=== PATIENT | male | born 1975 | race Caucasian/White ===

== ENCOUNTER → 2019-11-17 | Outpatient (CLI) | payer SELFPAY ==
--- NOTE | 2019-11-17 08:40 | Diagnostic Imaging Report ---
PROCEDURE: US Gallbladder. TECHNIQUE: Multiple real-time grayscale images were obtained over the right upper quadrant in various projections. INDICATION: Right upper quadrant pain for 2 weeks. Liver measures 16.2 cm in size. No discrete liver mass is identified. Portal vein is patent and shows normal direction of flow. Gallbladder is without stones or sludge. No wall thickening is identified. Extrahepatic bile duct is somewhat prominent at 10 mm. No definite common duct stone is detected. The pancreas is obscured by bowel gas. Aorta is is obscured. IVC is patent. Right kidney is without calculi or hydronephrosis. No ascites. IMPRESSION: 1. No evidence of cholelithiasis or acute cholecystitis. 2. Extrahepatic bile duct is prominent at 10 mm. No common duct stone is detected sonographically. Dictated by: Dictated on workstation # [id number]
== END ==
LOC: RAD 07:24
PROVIDERS: ATTEND Student in an Organized Health Care Education/Training Program
DX: R10.11 Right upper quadrant pain (principal)
CPT/HCPCS: 76705

== ENCOUNTER → 2019-12-04 | Outpatient (CLI) | payer OTHER ==
[~2019-12-04] MED LIST: CATHETER FLUSH 10 ML SYR IV PRN
--- NOTE | 2019-12-04 10:23 | Diagnostic Imaging Report ---
Hepatobiliary scan with ejection fraction. Indication: Abdominal pain This study was performed following administration of 5.06 mCi of Choletec and 8 ounces of Ensure. There are no prior nuclear medicine studies available for comparison. The gallbladder ultrasound exam performed on 11/17/2019 failed to show any sign of cholelithiasis or acute cholecystitis. The extrahepatic common bile duct was prominent at 10 mm. There is no evidence for choledocholithiasis however. On this exam, there is uptake of the radiotracer by the gallbladder for 30 minutes. This would be against a diagnosis of acute cholecystitis. There is also extension of the radiotracer into the small bowel indicating the common bile duct is not obstructed. The ejection fraction is 51.1% (normal greater than 35%). Impression: 1. There is no evidence for acute cholecystitis or for obstruction of the common bile duct. 2. The ejection fraction is 51.1% and within normal limits. Dictated by: Dictated on workstation # [id number]
== END ==
LOC: CARD 07:28
PROVIDERS: ATTEND Nurse Practitioner Family
DX: R10.11 Right upper quadrant pain (principal); R11.0 Nausea
CPT/HCPCS: 78227; A9537

== ENCOUNTER 2020-02-11 16:22 | Emergency (ER) | payer SELFPAY ==
[~2020-02-11] VITALS: Ht 182.8 cm; Wt 90.0 kg
--- NOTE | 2020-02-11 17:20 | ED Abdominal Pain ---
General Chief Complaint: Abdominal/GI Problems Stated Complaint: STOMACH PAIN/CHILLS/HOT FLASHES Nursing Triage Note: AMB TO ED WITH C/O EPIGASTRIC PAIN FOR 2 MONTHS HAS SEEN HIS DR FOR. 1 MONTH AGO HAD A HIDA SCAN AND GALLBLADDER SONO DID NOT SHOW ANYTHING. ABLE TO EAT AND DRINK. FOR 1 MONTH THAN CAME BACK YESTERDAY. WITH NAUSEA AND EPIGASTRIC PAIN Sepsis Screen: No Definite Risk Source of Information: Patient Exam Limitations: No Limitations History of Present Illness Date Seen by Provider: Feb 11, 2020 Time Seen by Provider: 17:20 Initial Comments This is a well appearing 45 yo male who presents with epigastric pain and nausea x2 days. States he has a history of gastritis and takes omeprazole twice a day. Todays pain feels the same as his prior episode of gastritis. Reports he has been lax in his diet and ate canned beef pasta and crespo tomato sandwich prior to symptom onset. States he was unable to eat or drink anything yesterday due to nausea. Denies tobacco, alcohol or drug use, stating he quit smoking, drugs and alcohol one year ago. Denies fever, chills, chest pain, cough, shortness of breath, or difficulty urinating. Denies COVID exposure or exposure to ill contacts. Allergies and Home Medications Allergies Uncoded Allergies: SEAFOOD (Allergy, Unknown, 02/11/20) Home Medications Promethazine HCl 25 Mg Tablet, 25 MG PO Q6H PRN for NAUSEA/VOMITING Prescribed by: ANA AHMADI on 02/11/201942 Sucralfate 1 Gm Tablet, 1 GM PO TIDAC Prescribed by: ANA AHMADI on 02/11/201942 Patient Home Medication List Home Medication List Reviewed: Yes Review of Systems Review of Systems Constitutional: no symptoms reported EENTM: No Symptoms Reported Respiratory: No Symptoms Reported Cardiovascular: No Symptoms Reported Gastrointestinal: See HPI Genitourinary: No Symptoms Reported Musculoskeletal: no symptoms reported Skin: no symptoms reported Psychiatric/Neurological: No Symptoms Reported Endocrine: No Symptoms Reported Hematologic/Lymphatic: No Symptoms Reported Past [id number] Hx Patient Social History Alcohol Use: Denies Use Recreational Drug Use: No Smoking Status: Current Everyday Smoker Recent Foreign Travel: No Contact w/Someone Who Travel: No Recent Infectious Disease Expo: No Past Medical History Surgeries: Yes Orthopedic, Tonsillectomy Respiratory: No Cardiac: Yes Hypertension Neurological: No Genitourinary: No Gastrointestinal: No Musculoskeletal: No Endocrine: No HEENT: No Cancer: No Psychosocial: No Integumentary: No Physical Exam Vital Signs Vital Signs - First Documented 02/11/20 16:51 Temp 36.3 Pulse 76 Resp 18 B/P (MAP) 177/107 (130) Pulse Ox 99 O2 Delivery Room Air Capillary Refill : Less Than 3 Seconds Height/Weight/BMI Height: '" Weight: lbs. oz. kg; 26.00 BMI Method: General Appearance: WD/WN, no apparent distress HEENT: PERRL/EOMI, normal ENT inspection, pharynx normal Neck: full range of motion, supple, normal inspection Respiratory: lungs clear, normal breath sounds, no respiratory distress Cardiovascular: normal peripheral pulses, regular rate, rhythm, no edema, no murmur Gastrointestinal: normal bowel sounds, soft, no organomegaly; No distended; other (mid-epigastric tenderness with palpation. ) Rectal: deferred Extremities: normal range of motion, non-tender, normal inspection, no calf tenderness, normal capillary refill Neurologic/Psychiatric: no motor/sensory deficits, alert, normal mood/affect, oriented x 3 Skin: normal color, warm/dry Progress/Results/Core Measures Results/Orders Lab Results Laboratory Tests Test 02/11/20 16:48 02/11/20 18:53 Range/Units White Blood Count 8.8 4.3-11.0 10^3/uL Red Blood Count 5.46 4.30-5.52 10^6/uL Hemoglobin 16.2 13.3-17.7 g/dL Hematocrit 48 40-54 % Mean Corpuscular Volume 87 80-99 fL Mean Corpuscular Hemoglobin 30 25-34 pg Mean Corpuscular Hemoglobin Concent 34 32-36 g/dL Red Cell Distribution Width 12.1 10.0-14.5 % Platelet Count 288 130-400 10^3/uL Mean Platelet Volume 8.9 L 9.0-12.2 fL Immature Granulocyte % (Auto) 1 % Neutrophils (%) (Auto) 70 42-75 % Lymphocytes (%) (Auto) 23 12-44 % Monocytes (%) (Auto) 5 0-12 % Eosinophils (%) (Auto) 2 0-10 % Basophils (%) (Auto) 0 0-10 % Neutrophils # (Auto) 6.1 1.8-7.8 10^3/uL Lymphocytes # (Auto) 2.0 1.0-4.0 10^3/uL Monocytes # (Auto) 0.4 0.0-1.0 10^3/uL Eosinophils # (Auto) 0.2 0.0-0.3 10^3/uL Basophils # (Auto) 0.0 0.0-0.1 10^3/uL Immature Granulocyte # (Auto) 0.0 0.0-0.1 10^3/uL Sodium Level 139 135-145 MMOL/L Potassium Level 4.3 3.6-5.0 MMOL/L Chloride Level 102 98-107 MMOL/L Carbon Dioxide Level 23 21-32 MMOL/L Anion Gap 14 5-14 MMOL/L Blood Urea Nitrogen 16 7-18 MG/DL Creatinine 1.12 0.60-1.30 MG/DL Estimat Glomerular Filtration Rate > 60 BUN/Creatinine Ratio 14 Glucose Level 98 70-105 MG/DL Calcium Level 9.6 8.5-10.1 MG/DL Corrected Calcium 8.5-10.1 MG/DL Total Bilirubin 0.9 0.1-1.0 MG/DL Aspartate Amino Transf (AST/SGOT) 59 H 5-34 U/L Alanine Aminotransferase (ALT/SGPT) 89 H 0-55 U/L Alkaline Phosphatase 66 40-136 U/L Troponin I < 0.028 <0.028 NG/ML Total Protein 8.5 H 6.4-8.2 GM/DL Albumin 5.0 H 3.2-4.5 GM/DL Lipase 25 8-78 U/L Urine Color YELLOW Urine Clarity CLEAR Urine pH 6.5 5-9 Urine Specific [place] <=1.005 1.016-1.022 Urine Protein NEGATIVE NEGATIVE Urine Glucose (UA) NEGATIVE NEGATIVE Urine Ketones NEGATIVE NEGATIVE Urine Nitrite NEGATIVE NEGATIVE Urine Bilirubin NEGATIVE NEGATIVE Urine Urobilinogen 0.2 < = 1.0 MG/DL Urine Leukocyte Esterase NEGATIVE NEGATIVE Urine RBC (Auto) NEGATIVE NEGATIVE Urine RBC NONE /HPF Urine WBC RARE /HPF Urine Crystals PRESENT H /LPF Urine Amorphous Sediment RARE STONEY URATES H /LPF Urine Bacteria NEGATIVE /HPF Urine Casts NONE /LPF Urine Mucus NEGATIVE /LPF Urine Culture Indicated NO Urine Opiates Screen NEGATIVE NEGATIVE Urine Oxycodone Screen NEGATIVE NEGATIVE Urine Methadone Screen NEGATIVE NEGATIVE Urine Propoxyphene Screen NEGATIVE NEGATIVE Urine Barbiturates Screen NEGATIVE NEGATIVE Ur Tricyclic Antidepressants Screen NEGATIVE NEGATIVE Urine Phencyclidine Screen NEGATIVE NEGATIVE Urine Amphetamines Screen NEGATIVE NEGATIVE Urine Methamphetamines Screen NEGATIVE NEGATIVE Urine Benzodiazepines Screen NEGATIVE NEGATIVE Urine Cocaine Screen NEGATIVE NEGATIVE Urine Cannabinoids Screen POSITIVE H NEGATIVE My Orders Orders - [facility] Cbc With Automated Diff (02/11/20 17:18) Comprehensive Metabolic Panel (02/11/20 17:18) Ua Culture If Indicated (02/11/20 17:18) Drug Screen Stat (Urine) (02/11/20 17:18) Lipase (02/11/20 17:18) Troponin I (02/11/20 17:18) Promethazine Injection (Phenergan Injec (02/11/20 17:30) Lactated Ringers (Lr 1000 Ml Iv Solution (02/11/20 17:30) Pantoprazole Injection (Protonix Injecti (02/11/20 17:30) Ct Abdomen/Pelvis W (02/11/20 17:43) Iohexol Injection (Omnipaque 350 Mg/Ml 1 (02/11/20 18:00) Received Contrast (Hold Metformin- Contr (02/11/20 18:00) Ns (Ivpb) (Sodium Chloride 0.9% Ivpb Bag (02/11/20 18:00) Medications Given in ED Vital Signs/I&O 02/11/20 02/11/20 16:51 19:46 Temp 36.3 36.4 Pulse 76 66 Resp 18 18 B/P (MAP) 177/107 (130) 127/90 (130) Pulse Ox 99 98 O2 Delivery Room Air Room Air Blood Pressure Mean: 130 Progress Progress Note : Progress Note Pt. examined. States he does not have "typical pain", its more nausea than anything. Basic labs, troponin, IFV, Protonix 40mg IVP, and Phenergan 25mg ordered for nausea. CT abd/pelvis ordered as well as lipase to r/o pancreatitis. Reported complete improvement of symptoms after fluids and meds given. Resting comfortably, waiting CT results. CT shows no acute findings. This is likely an exacerbation of his gastritis d/t non compliance with diet. Plan to continue home omeprazole and add Carafate. Discussed following up with his PCP regarding his elevated liver enzymes. Reviewed POC and he is agreeable with plan. Diagnostic Imaging Diagonstic Imaging: CT Plain Films/CT/US/NM/MRI: abdomen, pelvis Comments NAME: [facility] REC#: [id number] PT STATUS: REG ER : 1975 PHYSICIAN: ANA AHMADI APRN ADMIT DATE: 02/11/20/ER Signed Date of Exam:02/11/20 CT ABDOMEN/PELVIS W PROCEDURE: CT abdomen and pelvis with contrast. TECHNIQUE: Multiple contiguous axial images were obtained through the abdomen and pelvis after administration of intravenous contrast. Auto Exposure Controls were utilized during the CT exam to meet ALARA standards for radiation dose reduction. All CT scans use one or more of the following dose optimizing techniques: automated exposure control, MA and/or KvP adjustment based on patient size and exam type or iterative reconstruction. INDICATION: Upper abdominal pain and nausea for 2 months. FINDINGS: Good enhancement of the aorta and abdominal vessels which appear normal. Liver appears normal. The gallbladder and bile ducts are normal. The pancreas and spleen are normal. There is a fatty lesion in the left adrenal gland which is well-circumscribed measuring 1.5 cm. Right adrenal gland is normal. Kidneys appear normal with good enhancement. There is a small hiatal hernia. Stomach otherwise appears normal. Small bowel is not dilated. No bowel wall thickening. The colon shows normal stool and gas pattern. The appendix is visualized and normal. There is no free air or free fluid. No intra-abdominal adenopathy of pathologic size. The bladder is normal. Prostate is not enlarged. There are no blastic or lytic bony changes. Lumbosacral spine shows good alignment with degenerative changes L5-S1. IMPRESSION:. 1. Small hiatal hernia. 2. Fatty lesion left adrenal gland measuring 1.5 cm most likely representing adenoma. Dictated by: Dictated on workstation # [id number] Dict: 02/11/20 1830 Trans: 02/11/20 184 CV [id number] Interpreted by: RONAL AVELAR MD Electronically signed by: RONAL AVELAR MD 02/11/20 184 Departure Impression Primary Impression: Gastritis Disposition: 01 HOME, SELF-CARE Condition: Improved Departure-Patient Inst. Decision time for Depature: 19:39 [facility] Primary Care Physician BENNY KAUR APRN (Family) Primary Care Physician Patient Instructions: Gastritis ED Add. Discharge Instructions: Plan: 1. Discharge home. 2. Take Carafate one hour before meals. 3. Continue Omeprazole 20mg by mouth twice a day. 4. Avoid spicy, greasy, foods or any other foods that worsen your symptoms. 5. Take Phenergan 25mg by mouth every 6 hours as needed for nausea. 6. Follow up with your primary care doctor to trend your liver enzymes. All discharge instructions reviewed with patient and/or family. Voiced understanding. Scripts Promethazine HCl (Promethazine Tablet) 25 Mg Tablet 25 MG PO Q6H PRN for NAUSEA/VOMITING, #20 TAB 0 Refills Prov: ANA AHMADI APRN 02/11/20 Sucralfate (Carafate) 1 Gm Tablet 1 GM PO TIDAC for 7 Days, #21 TAB 0 Refills Prov: ANA AHMADI APRN 02/11/20 ANA AHMADI APRN Feb 11, 2020 17:20
[2020-02-11 17:26] LABS: CHLORIDE 102 MMOL/L (98-107); POTASSIUM 4.3 MMOL/L (3.6-5.0); SODIUM 139 MMOL/L (135-145)
[2020-02-11 17:28] LABS: CALCIUM 9.6 MG/DL (8.5-10.1)
[2020-02-11 17:29] LABS: GLUCOSE 98 MG/DL (70-105); TOTAL PROTEIN 8.5 GM/DL (6.4-8.2)
[2020-02-11 17:30] LABS: CARBON DIOXIDE 23 MMOL/L (21-32)
[2020-02-11] MEDS ORDERED: PROMETHAZINE INJ 25 MG/ML (PHENERGAN) AMP IVP ONE (17:30)
[2020-02-11] MEDS ORDERED: PANTOPRAZOLE 40 MG (PROTONIX) VIAL IV ONE (17:30)
[2020-02-11] MEDS ORDERED: LACTATED RINGERS 1,000 ML IV ONE (17:30)
[2020-02-11 17:31] LABS: BILIRUBIN,TOTAL 0.9 MG/DL (0.1-1.0)
[2020-02-11 17:32] LABS: ALKALINE PHOSPHATASE 66 U/L (40-136); CREATININE SERUM 1.12 MG/DL (0.60-1.30); GFR ESTIMATED > 60
[2020-02-11 17:33] LABS: BUN/CREATININE RATIO 14
[2020-02-11 17:35] LABS: ALANINE AMINOTRANSFERASE 89 U/L (0-55)
[2020-02-11 17:36] LABS: LIPASE 25 U/L (8-78)
[2020-02-11 18:00] LABS: BASOPHILS % (AUTO) 0 % (0-10); EOSINOPHILS # (AUTO) 0.2 10^3/uL (0.0-0.3); EOSINOPHILS % (AUTO) 2 % (0-10); HEMATOCRIT 48 % (40-54); HEMOGLOBIN 16.2 g/dL (13.3-17.7); LYMPHOCYTES % (AUTO) 23 % (12-44); MEAN CORPUSCULAR HEMOGLOBIN 30 pg (25-34); MEAN CORPUSCULAR HGB CONC 34 g/dL (32-36); MEAN CORPUSCULAR VOLUME 87 fL (80-99); MEAN PLATELET VOLUME 8.9 fL (9.0-12.2); MONOCYTES # (AUTO) 0.4 10^3/uL (0.0-1.0); MONOCYTES % (AUTO) 5 % (0-12); NEUTROPHILS # (AUTO) 6.1 10^3/uL (1.8-7.8); NEUTROPHILS % (AUTO) 70 % (42-75); PLATELET COUNT 288 10^3/uL (130-400); WHITE BLOOD COUNT 8.8 10^3/uL (4.3-11.0)
[2020-02-11] MEDS ORDERED: IOHEXOL 350 MG/ML 100 ML (OMNIPAQUE 350) VIAL IV ONE (18:00)
[2020-02-11] MEDS ORDERED: HOLD METFORMIN - RECEIVED CONTRAST 20 ML VIAL IV SCH (18:00)
[2020-02-11] MEDS ORDERED: NS 100 ML (IVPB) BAG IV ONE (18:00)
--- NOTE | 2020-02-11 18:38 | Diagnostic Imaging Report ---
PROCEDURE: CT abdomen and pelvis with contrast. TECHNIQUE: Multiple contiguous axial images were obtained through the abdomen and pelvis after administration of intravenous contrast. Auto Exposure Controls were utilized during the CT exam to meet ALARA standards for radiation dose reduction. All CT scans use one or more of the following dose optimizing techniques: automated exposure control, MA and/or KvP adjustment based on patient size and exam type or iterative reconstruction. INDICATION: Upper abdominal pain and nausea for 2 months. FINDINGS: Good enhancement of the aorta and abdominal vessels which appear normal. Liver appears normal. The gallbladder and bile ducts are normal. The pancreas and spleen are normal. There is a fatty lesion in the left adrenal gland which is well-circumscribed measuring 1.5 cm. Right adrenal gland is normal. Kidneys appear normal with good enhancement. There is a small hiatal hernia. Stomach otherwise appears normal. Small bowel is not dilated. No bowel wall thickening. The colon shows normal stool and gas pattern. The appendix is visualized and normal. There is no free air or free fluid. No intra-abdominal adenopathy of pathologic size. The bladder is normal. Prostate is not enlarged. There are no blastic or lytic bony changes. Lumbosacral spine shows good alignment with degenerative changes L5-S1. IMPRESSION:. 1. Small hiatal hernia. 2. Fatty lesion left adrenal gland measuring 1.5 cm most likely representing adenoma. Dictated by: Dictated on workstation # [id number]
[2020-02-11 18:59] LABS: BILIRUBIN,URINE NEGATIVE (NEGATIVE); CLARITY,URINE CLEAR; COLOR,URINE YELLOW; GLUCOSE, URINE (UA) NEGATIVE (NEGATIVE); KETONES,URINE NEGATIVE (NEGATIVE); LEUKOCYTE ESTERASE ,URINE NEGATIVE (NEGATIVE); NITRITE,URINE NEGATIVE (NEGATIVE); PH,URINE 6.5 (5-9); PROTEIN,URINE NEGATIVE (NEGATIVE)
[2020-02-11 19:20] LABS: AMORPHOUS SEDIMENT,UR RARE AMOR URATES /LPF; BACTERIA,URINE NEGATIVE /HPF; WBC,URINE RARE /HPF
[2020-02-11 19:28] LABS: AMPHETAMINE SCREEN, URINE NEGATIVE (NEGATIVE); BARBITURATE SCREEN URINE NEGATIVE (NEGATIVE); BENZODIAZEPINES SCREEN URINE NEGATIVE (NEGATIVE); CANNABINOID SCREEN, URINE POSITIVE (NEGATIVE); COCAINE SCREEN URINE NEGATIVE (NEGATIVE); METHADONE STAT NEGATIVE (NEGATIVE); METHAMPHETAMINE SCREEN URINE S NEGATIVE (NEGATIVE); OPIATE SCREEN URINE NEGATIVE (NEGATIVE); OXYCODONE STAT NEGATIVE (NEGATIVE); PROPOXYPHENE STAT NEGATIVE (NEGATIVE); TRICYCLIC ANTIDEPRESSANTS SCRE NEGATIVE (NEGATIVE)
[2020-02-11] MEDS ORDERED: SUCR1TAB36 PO (19:43)
[2020-02-11] MEDS ORDERED: PROM25TA14 PO (19:43)
[2020-02-11 19:46] VITALS: BP 127/90
== END 2020-02-11 19:47 | disposition home or self-care (01) ==
LOC: EDUNIT# 16:22 → ER 16:23
DX: K29.70 Gastritis, unspecified, without bleeding (principal); I10 Essential (primary) hypertension; F17.200 Nicotine dependence, unspecified, uncomplicated
CPT/HCPCS: 36415; 74177; 80053; 80306; 81000; 83690; 84484; 85025